=== PATIENT | female | born 1970 | race African-American/Black ===

== ENCOUNTER 2021-03-13 18:08 | Emergency (ER) | payer MEDICARE, MEDICAID ==
[~2021-03-13] VITALS: Ht 167.6 cm; Wt 66.0 kg
[2021-03-13 19:09] LABS: BASOPHILS % 0.6 % (0.0-2.0); EOSINOPHILS % 2.8 % (0.0-5.0); HEMATOCRIT. 31.2 % (36.0-48.0); LYMPHOCYTES % 14.5 % (20.0-50.0); MEAN CORPUSCULAR HEMOGLOBIN 25.3 pg (28.0-32.0); MEAN CORPUSCULAR VOLUME 79.2 fL (81.0-99.0); MEAN PLATELET VOLUME 9.9 fl (7.4-10.4); MONOCYTES % 8.3 % (2.0-8.0); NEUTROPHILS % 73.8 % (40.0-76.0); PLATELET 98 x1000/uL (130-400); RED BLOOD CELL COUNT 3.94 mill/uL (4.2-5.4); RED CELL DISTRIBUTION WIDTH 16.7 % (11.6-14.6)
[2021-03-13 19:17] LABS: CHLORIDE 104 mEq/L (98-107)
[2021-03-13 19:21] LABS: ETHANOL BLOOD < 10 mg/dL
[2021-03-13 19:24] LABS: LDL CHOLESTEROL 22 mg/dL (5-100)
[2021-03-13 19:34] LABS: INR 1.1; PROTHROMBIN TIME 11.8 sec (9.6-11.0)
[2021-03-13 20:01] VITALS: BP 175/80
[2021-03-13] MEDS ORDERED: IOHEXOL-350 100 ML BOTTLE ONE (22:23)
== END 2021-03-13 20:50 | disposition home or self-care (01) ==
LOC: ER 18:08 → CANBEDREQ 22:57
DX: E87.8 Other disorders of electrolyte and fluid balance, not elsewhere classified (principal); R53.1 Weakness; I69.341 Monoplegia of lower limb following cerebral infarction affecting right dominant side; I12.0 Hypertensive chronic kidney disease with stage 5 chronic kidney disease or end stage renal disease; E11.22 Type 2 diabetes mellitus with diabetic chronic kidney disease; N18.6 End stage renal disease; Z99.2 Dependence on renal dialysis; Z79.4 Long term (current) use of insulin
CPT/HCPCS: 36415; 70450; 70496; 70498; 71045; 80053; 80320; 82962; 83721; 84484; 85025; 85610; 93005; 99285; Q9967; G0480